=== PATIENT | male | born 1960 ===

== ENCOUNTER 2017-10-06 06:28 | Day surgery (SDC) | payer OTHER ==
[2017-10-06] MEDS ORDERED: Propofol 10 mg/ml Inj (20 ML) ONE ×2 (08:33→08:37)
[2017-10-06] MEDS ORDERED: Midazolam 2 MG/2 ML VIAL ONE (08:33)
[2017-10-06] MEDS ORDERED: Lactated Ringer's 500 ML IV ONE (08:35)
--- NOTE | 2017-10-06 08:35 | CP.SDSHP ---
Same Day Surgery H & P - History Proposed Procedure: colonoscopy Pre-Op Diagnosis: FIT test positive. Family h/o Colon Cancer (Father, 62) - Previous Medical/Surgical History Comments: Denies past medical or surgical history - Allergies Allergies: Allergies No Known Allergies Allergy (Verified 10/06/17 06:55) - Physical Exam Vital Signs: Vital Signs 10/06/17 07:20 Temperature 98.7 F Pulse Rate 80 Respiratory 20 Rate Blood Pressure 118/71 O2 Sat by Pulse 97 Oximetry Mental Status: Alert & Oriented x3 Neuro: WNL Heart: WNL Lungs: WNL GI: WNL - Impression Impression: Positive FIT test. Family h/o colon cancer Pt. Evaluated Today:Candidate for Anesthesia & Procedure: Yes - Date & Time Date: 10/06/17 Time: 08:34 Short Stay Discharge - Short Stay Discharge Admitting Diagnosis/Reason for Visit: SCREENING / F/H/ MALIGNANCY Disposition: HOME/ ROUTINE
[2017-10-06 08:43] VITALS: O2SAT 100
[2017-10-06 09:16] VITALS: TEMP 98.1
[2017-10-06 09:45] VITALS: BP 93/58; PULSE 64; RESP 14
== END 2017-10-06 11:10 | disposition home or self-care (01) ==
LOC: C.ENDO 06:28
PROVIDERS: ATTEND Internal Medicine Gastroenterology
DX: D12.5 Benign neoplasm of sigmoid colon (principal); K64.8 Other hemorrhoids
CPT/HCPCS: 45388; 88305; J2250; J2704; J7120